=== PATIENT | female | born 1980 | race Caucasian/White ===

== ENCOUNTER 2017-01-07 08:44 | Emergency (ER) | payer OTHER ==
[2017-01-07 08:52] VITALS: RESP 20
[2017-01-07] MEDS ORDERED: KETOROLAC 60 MG/2 ML VIAL IM STA (09:16)
--- NOTE | 2017-01-07 09:39 | XR ---
EXAMINATION TYPE: XR foot complete RT DATE OF EXAM: 01/07/2017 9:28 AM COMPARISON: 01/10/2015 HISTORY: Pain lateral right foot and heel Postsurgical change first digit. Findings suggestive of previous surgery involving the digit. IMPRESSION: 1. No acute fracture or dislocation. If symptoms persist, follow-up exam in 7 to 10 days could be ob tained. 2. Postsurgical change.
--- NOTE | 2017-01-07 10:11 | ED ---
Extremity Problem HPI - General Chief complaint: Extremity Problem,Nontraumatic Stated complaint: foot pain Time Seen by Provider: 01/07/17 09:08 Source: patient, RN notes reviewed Mode of arrival: wheelchair Limitations: no limitations - History of Present Illness Initial comments: 36-year-old female presents to the emergency room chief complaint of right foot pain and swelling. Patient again over the weekend. Patient denies any falls traumas or injuries to the foot. Patient does have a history of plantar fasciitis and has had surgery for it in the past. Patient states she has a headache any redness she denies any calf pain. Patient states when she plantar fasciitis this presented exactly the same way. She states that it is painful and swollen. Patient states that she does sometimes have pain and swelling throughout the joints of her body she is concerned maybe she has rheumatoid. Fevers. Patient states she is not currently having any other symptoms. Patient denies any recent fever, chills, shortness of breath, chest pain, back pain, abdominal pain, nausea vomiting, numbness or tingling, dysuria or hematuria, constipation or diarrhea, headaches or visual changes, or any other current symptoms. - Related Data Previous Rx's Medication Instructions Recorded Hydrocodone/Acetaminophen [Switchback 1 each PO Q6HR PRN #20 tab 01/07/17 5-325] Allergies Allergy/AdvReac Type Severity Reaction Status Date / Time No Known Allergies Allergy Verified 01/07/17 09:03 Review of Systems ROS Statement: Those systems with pertinent positive or pertinent negative responses have been documented in the HPI. ROS Other: All systems not noted in ROS Statement are negative. Past Medical History Past Medical History: No Reported History History of Any Multi-Drug Resistant Organisms: None Reported Past Surgical History: Orthopedic Surgery Additional Past Surgical History / Comment(s): right foot Past Psychological History: No Psychological Hx Reported Smoking Status: Current every day smoker Past Alcohol Use History: Occasional Past Drug Use History: None Reported General Exam - General Exam Comments Initial Comments: General: The patient is awake and alert, in no distress, and does not appear acutely ill. Neck: The neck is supple, there is no tenderness. Cardiovascular: There is a regular rate and rhythm. No murmur, rub or gallop is appreciated. Respiratory: Lungs are clear to auscultation, respirations are non-labored, breath sounds are equal. No wheezes, stridor, rales, or rhonchi. Musculoskeletal: Sensation intact with 2+ pulses that right extremity. Findings motion of right knee right ankle and right foot. Patient has a negative Homans sign no calf tenderness or swelling. Patient is has tenderness along the anterior ankle and tenderness to the patient along the plantar aspect of the foot. There is no erythema or redness. Neurological: CN II-XII intact, There are no obvious motor or sensory deficits. Coordination appears grossly intact. Speech is normal. Skin: Skin is warm and dry and no rashes or lesions are noted. Psychiatric: Normal mood and affect. Limitations: no limitations Course Vital Signs 01/07/17 08:49 Temperature 97.7 F Pulse Rate 102 H Respiratory 20 Rate Blood Pressure 159/81 O2 Sat by Pulse 100 Oximetry Medical Decision Making - Medical Decision Making 36-year-old female presents with right foot pain. At this time patient does appear plantar fasciitis. This was discussed follow-up with orthopedist. We did discuss that she should be worked up probably for rheumatoid and we did discuss fine up with supervisor residential. We did discuss ice we did discuss Motrin Tylenol and the pain medications as prescribed. Discussed return parameters. Patient stated that she understood all her questions she will be discharged home. - Radiology Data Radiology results: report reviewed, image reviewed Disposition Clinical Impression: Plantar fasciitis of right foot Disposition: HOME SELF-CARE Condition: Stable Instructions: Plantar Fasciitis (ED) Additional Instructions: Please use medication as discussed. Please follow up with family doctor if symptoms have not improved over the next two days. Please return to the emergency room if your symptoms increase or worsen or for any other concerns. Prescriptions: Hydrocodone/Acetaminophen [Switchback 5-325] 1 each PO Q6HR PRN #20 tab PRN Reason: Pain Referrals: Chandu Do DO [Primary Care Provider] - 1-2 days Paul Murphy MD [STAFF PHYSICIAN] - 1-2 days Time of Disposition: 10:11
[2017-01-07 10:33] VITALS: BP 129/82; PULSE 63; TEMP 99.4
== END 2017-01-07 10:31 | disposition home or self-care (01) ==
LOC: EC 08:44
DX: M72.2 Plantar fascial fibromatosis (principal); F17.200 Nicotine dependence, unspecified, uncomplicated
CPT/HCPCS: 73630; 96372; 99283; J1885